=== PATIENT | male | born 1975 | race African-American/Black ===

== ENCOUNTER 2017-07-25 16:15 | Emergency (ER) | payer SELFPAY ==
[~2017-07-25] VITALS: Ht 190.5 cm; Wt 103.0 kg
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
[2017-07-25] MEDS ORDERED: BACITRACIN ZINC 0.9GM TP ONE (18:15)
== END 2017-07-25 18:35 | disposition home or self-care (01) ==
LOC: ER 16:15
DX: S61.223A Laceration with foreign body of left middle finger without damage to nail, initial encounter (principal); W29.4XXA Contact with nail gun, initial encounter; Y92.89 Other specified places as the place of occurrence of the external cause; Y99.0 Civilian activity done for income or pay
CPT/HCPCS: 99283